=== PATIENT | male | born 1945 | race Caucasian/White ===

== ENCOUNTER → 2019-10-08 13:21 | Outpatient (BNVA) | payer MEDICARE, SELFPAY | PROVIDERS: Family Provider Family Medicine; PCP Family Medicine; Visit Provider Specialist | DX: G20 Parkinson's disease (principal) | CPT/HCPCS: 96116; 99213; 99214 ==

== ENCOUNTER → 2020-02-13 10:52 | Outpatient (BNVA) | payer MEDICARE, SELFPAY | PROVIDERS: Family Provider Family Medicine; PCP Family Medicine; Visit Provider Specialist | DX: G20 Parkinson's disease (principal) | CPT/HCPCS: 99214 ==

== ENCOUNTER → 2020-08-13 11:10 | Outpatient (BNVA) | payer MEDICARE, SELFPAY | PROVIDERS: Family Provider Family Medicine; PCP Family Medicine; Visit Provider Specialist | DX: G20 Parkinson's disease (principal); F02.80 Dementia in other diseases classified elsewhere, unspecified severity, without behavioral disturbance, psychotic disturbance, mood disturbance, and anxiety | CPT/HCPCS: 96116; 99214 ==

== ENCOUNTER → 2021-04-20 10:22 | Outpatient (BNVA) | payer MEDICARE, SELFPAY | PROVIDERS: Family Provider Family Medicine; PCP Family Medicine; Visit Provider Specialist | DX: G20 Parkinson's disease (principal) | CPT/HCPCS: 99214 ==

== ENCOUNTER → 2022-04-19 09:12 | Outpatient (BNVA) | payer MEDICARE, SELFPAY | PROVIDERS: Family Provider Family Medicine; PCP Family Medicine; Visit Provider Specialist | DX: G20 Parkinson's disease (principal); R41.89 Other symptoms and signs involving cognitive functions and awareness; F51.5 Nightmare disorder | CPT/HCPCS: 96116; 99214 ==

== ENCOUNTER → 2022-10-25 10:20 | Outpatient (BNVA) | payer MEDICARE, SELFPAY | PROVIDERS: Family Provider Family Medicine; PCP Family Medicine; Visit Provider Specialist | DX: G20 Parkinson's disease (principal); F06.70 Mild neurocognitive disorder due to known physiological condition without behavioral disturbance | CPT/HCPCS: 0346U; 36415; 82542; 96116; 99215 ==

== ENCOUNTER 2022-11-26 12:52 | Outpatient (CLI) | payer MEDICARE, SELFPAY ==
--- NOTE | 2022-11-26 13:00 | MR_ITS ---
WS: [id number] MRI HEAD WITHOUT CONTRAST TECHNIQUE: Sagittal T1, T2 axial, T2 axial FLAIR, axial and coronal T1 images, axial susceptibility w eighted imaging, axial diffusion weighted images, and coronal T2 images were obtained. CLINICAL INFORMATION: G31.84 - Mild cognitive impairment of uncertain or unknow... COMPARISON: None. FINDINGS: No evidence of restricted diffusion to suggest acute ischemia. Ventricular system and basal cisterns are patent. Moderate small vessel changes. Moderate parenchymal volume loss. Normal posterior fossa. Normal vascular flow voids at the skull base. No extra-axial fluid collections. No mass of mass or ma ss effect. Paranasal sinuses are well aerated. Mastoid air cells well aerated. No hemosiderin on the susceptibly weighted images. Normal optic chiasm and pituitary infundibulum. Mo derate symmetric atrophy temporal lobes and hippocampal formations.. IMPRESSION: 1. No evidence of restricted diffusion to suggest acute ischemia. 2. Moderate small vessel changes with moderate parenchymal volume loss. 3. Mild to moderate symmetric atrophy temporal lobes and hippocampal formations. 4. No hemosiderin on susceptibility-weighted images.
== END 2022-11-26 12:53 | disposition home or self-care (01) ==
PROVIDERS: PCP Family Medicine; Visit Provider Specialist
DX: G31.84 Mild cognitive impairment of uncertain or unknown etiology (principal); G20 Parkinson's disease
CPT/HCPCS: 70551

== ENCOUNTER → 2022-12-20 15:16 | Outpatient (BNVA) | payer MEDICARE, SELFPAY | PROVIDERS: PCP Family Medicine; Visit Provider Specialist | DX: F02.80 Dementia in other diseases classified elsewhere, unspecified severity, without behavioral disturbance, psychotic disturbance, mood disturbance, and anxiety (principal); G20 Parkinson's disease; G30.9 Alzheimer's disease, unspecified | CPT/HCPCS: 99215 ==

== ENCOUNTER 2023-01-17 08:35 | Oncology outpatient (recurring) (ONCR) | payer MEDICARE, SELFPAY ==
[2023-01-17 09:04] VITALS: BP 125/70; PULSE 62; RESP 18; TEMP 36.5; O2SAT 95
[2023-01-17] MEDS: acetaminophen 500 mg Tablet 1000 MG PO (09:13)
[2023-01-17] MEDS: sodium chloride 0.9% 250 ML 100 ML IV (09:13)
[2023-01-17 10:50] VITALS: BP 167/77
[2023-01-17 11:20] VITALS: BP 169/75
== END 2023-01-25 23:59 | disposition home or self-care (01) ==
PROVIDERS: PCP Family Medicine; Visit Provider Specialist
DX: G31.84 Mild cognitive impairment of uncertain or unknown etiology (principal)
CPT/HCPCS: 96413; J0174; J7050

== ENCOUNTER 2023-02-14 08:59 | Oncology outpatient (recurring) (ONCR) | payer MEDICARE, SELFPAY ==
[2023-01-31 09:25] VITALS: BP 132/78; PULSE 64; RESP 17; TEMP 36.8; O2SAT 97
[2023-01-31] MEDS: acetaminophen 500 mg Tablet 1000 MG PO (09:43)
[2023-01-31] MEDS: sodium chloride 0.9% 250 ML 75 ML IV (09:44)
[2023-01-31 11:40] VITALS: BP 134/72; PULSE 62; RESP 17; TEMP 36.5; O2SAT 95
[2023-02-14 09:14] VITALS: BP 153/74; PULSE 62; TEMP 36.9; O2SAT 98
[2023-02-14] MEDS: sodium chloride 0.9% 250 ML 75 ML IV (09:43)
[2023-02-14] MEDS: acetaminophen 500 mg Tablet 1000 MG PO (09:43)
== END 2023-02-24 23:59 | disposition home or self-care (01) ==
PROVIDERS: PCP Family Medicine; Visit Provider Specialist
DX: G31.84 Mild cognitive impairment of uncertain or unknown etiology (principal)
CPT/HCPCS: 96413; J0174; J7050

== ENCOUNTER 2023-03-14 08:30 | Oncology outpatient (recurring) (ONCR) | payer MEDICARE, SELFPAY ==
--- NOTE | 2023-02-28 11:40 | PC.NURSE ---
Patient scheduled today for infusion of Leqembi. On arrival, patient's stated that following last infusion patient experienced facial swelling, confusion, and lack of coordination. Patient stated he received a steroid injection last 02/25/23, as well as topical antibiotic and steroid creams. Patient stated facial swelling was significantly better after steroid injection but stated that his cognition has not improved since receiving the infusions. This nurse attempted to contact Dr. Mauro regarding this, with no answer. Patient was informed that he could wait for approval from Dr. Mauro before receiving the infusion, but patient and wanted to reschedule. Patient verbalized understanding to hold infusion today and reschedule after Dr. Mauro approves.
== END 2023-03-27 23:59 | disposition home or self-care (01) ==
PROVIDERS: PCP Family Medicine; Visit Provider Specialist
DX: Z53.9 Procedure and treatment not carried out, unspecified reason (principal)

== ENCOUNTER → 2023-03-14 14:03 | Outpatient (BNVA) | payer MEDICARE, SELFPAY | PROVIDERS: PCP Family Medicine; Visit Provider Specialist | DX: G31.84 Mild cognitive impairment of uncertain or unknown etiology (principal); G20.A2 Parkinson's disease without dyskinesia, with fluctuations; R01.1 Cardiac murmur, unspecified | CPT/HCPCS: 99214 ==

== ENCOUNTER → 2023-08-05 11:30 | Outpatient (BNVA) | payer MEDICARE, SELFPAY | PROVIDERS: PCP Family Medicine; Visit Provider Specialist | DX: G20.A2 Parkinson's disease without dyskinesia, with fluctuations (principal); G31.84 Mild cognitive impairment of uncertain or unknown etiology | CPT/HCPCS: 99214 ==

== ENCOUNTER 2023-09-05 09:18 | Oncology outpatient (recurring) (ONCR) | payer MEDICARE, SELFPAY ==
--- NOTE | 2023-09-05 09:30 | MR_ITS ---
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 COMPARISON: 02/14/2023 TECHNIQUE: Diffusion imaging, multiplanar T1, T2 and FLAIR imaging obtained. No evidence for acute infarct or hemorrhage. Avila-white matter differentiation is normal. Moderate atrophy is symmetric. Moderate small vessel ischemic type changes in the periventricular and subcortical white matter. Remote ischemia in the LEFT nena. No obvious progression since the prior s tudy from 02/22/2023. No hemorrhage. Ventricles and extra-axial spaces are prominent on the basis of central and peripheral atrophy. Moder ate bilateral hippocampal atrophy. No inferior displacement of cerebellar tonsils. The sella turcica and pituitary gland are unremarkabl e. Dural venous sinuses and beaver of Hernández demonstrate no abnormality on this unenhanced studies. Paranasal sinuses: Clear. Mastoid air cells: Large amount of fluid in the RIGHT mastoid air cells. Small amount on the LEFT. Calvarium and scalp: Intact. MR/MR head wo con* [id number] IMPRESSION: 1. No acute infarct or hemorrhage. 2. Moderate atrophy with moderate small vessel ischemic disease in the suprate ntorial white matter. Stable since 02/22/2023. 3. Mild remote ischemia in the LEFT nena. 4. Extensive RIGHT mastoid air cell effusion. 5. Moderate hippocampal atrophy.
== END 2023-09-25 23:59 | disposition home or self-care (01) ==
PROVIDERS: PCP Family Medicine; Visit Provider Specialist
DX: G20.A2 Parkinson's disease without dyskinesia, with fluctuations (principal); G31.84 Mild cognitive impairment of uncertain or unknown etiology
CPT/HCPCS: 70551

== ENCOUNTER → 2023-11-11 12:15 | Outpatient (BNVA) | payer MEDICARE, SELFPAY | PROVIDERS: PCP Family Medicine; Visit Provider Specialist | DX: G20.A2 Parkinson's disease without dyskinesia, with fluctuations (principal); G31.84 Mild cognitive impairment of uncertain or unknown etiology; G62.9 Polyneuropathy, unspecified | CPT/HCPCS: 99214 ==

== ENCOUNTER → 2024-03-19 11:00 | Outpatient (BNVA) | payer MEDICARE, SELFPAY | PROVIDERS: PCP Family Medicine; Referring Provider Family Medicine; Visit Provider Specialist | DX: G20.A2 Parkinson's disease without dyskinesia, with fluctuations (principal); G31.84 Mild cognitive impairment of uncertain or unknown etiology | CPT/HCPCS: 99214 ==

== ENCOUNTER → 2024-09-26 15:41 | Outpatient (BNVA) | payer MEDICARE, SELFPAY | PROVIDERS: PCP Family Medicine; Visit Provider Specialist | DX: G20.A2 Parkinson's disease without dyskinesia, with fluctuations (principal); G31.84 Mild cognitive impairment of uncertain or unknown etiology | CPT/HCPCS: 99214 ==